=== PATIENT | male | born 1950 | race American Indian/Alaskan Native ===

== ENCOUNTER 2021-07-15 14:35 | Emergency (ER) | payer MEDICARE ==
--- NOTE | 2021-07-15 16:19 | Emergency Department Report ---
ED Back Pain/Injury HPI - General Chief Complaint: Back Pain/Injury Stated Complaint: SHARP PAIN LFT SIDE Source: patient Limitations: No Limitations - History of Present Illness Initial Comments: 70-year-old accompanied by presents to the ED complaining of back pain x 3 days. states that has been frequently going to the bathroom and she is concerned that he possibly has a urinary tract infection. states that has mild case of dementia. Patient is alert and oriented x3 at present time. He denies any back pain at present. Denies any IV steroids, fever ,or drug use. He denies any trauma. No obvious deformity noted. Patient is ambulatory. No acute distress noted. No Ill appearance noted. MD Complaint: back pain Onset/Timin -: Gradual Similar Symptoms Previously: No Place: home Radiation: none Severity scale (0 -10): 0 Improves With: none Worsens With: none Associated Symptoms: denies other symptoms - Related Data Previous Rx's Medication Instructions Recorded Last Taken Type cephALEXin [Keflex] 500 mg PO Q12HR 7 Days #14 cap 07/15/21 Unknown Rx Allergies Allergy/AdvReac Type Severity Reaction Status Date / Time No Known Allergies Allergy Unverified 07/15/21 14:56 ED Review of Systems ROS: Stated complaint: SHARP PAIN LFT SIDE Other details as noted in HPI Constitutional: denies: chills, fever Eyes: denies: eye pain, eye discharge, vision change ENT: denies: ear pain, throat pain Respiratory: denies: cough, shortness of breath, wheezing Cardiovascular: denies: chest pain, palpitations Endocrine: no symptoms reported Gastrointestinal: denies: abdominal pain, nausea, diarrhea Genitourinary: denies: urgency, dysuria Musculoskeletal: denies: back pain, joint swelling, arthralgia Skin: denies: rash, lesions Neurological: denies: headache, weakness, paresthesias Psychiatric: denies: anxiety, depression Hematological/Lymphatic: denies: easy bleeding, easy bruising ED Past Medical Hx - Medications Home Medications: Home Medications Medication Instructions Recorded Confirmed Last Taken Type cephALEXin [Keflex] 500 mg PO Q12HR 7 Days #14 cap 07/15/21 Unknown Rx ED Physical Exam - General Limitations: No Limitations General appearance: alert, in no apparent distress - Head Head exam: Present: atraumatic, normocephalic - Eye Eye exam: Present: normal appearance - ENT ENT exam: Present: mucous membranes moist - Neck Neck exam: Present: normal inspection - Respiratory Respiratory exam: Present: normal lung sounds bilaterally. Absent: respiratory distress - Cardiovascular Cardiovascular Exam: Present: regular rate, normal rhythm. Absent: systolic murmur, diastolic murmur, rubs, gallop - GI/Abdominal GI/Abdominal exam: Present: soft, normal bowel sounds - Rectal Rectal exam: Present: deferred - Extremities Exam Extremities exam: Present: normal inspection - Back Exam Back exam: Present: normal inspection - Neurological Exam Neurological exam: Present: alert, oriented X3 - Psychiatric Psychiatric exam: Present: normal affect, normal mood - Skin Skin exam: Present: warm, dry, intact, normal color. Absent: rash ED Course Vital Signs 07/15/21 14:56 Temperature 98.3 F Pulse Rate 90 Respiratory 18 Rate Blood Pressure 143/77 [Right] O2 Sat by Pulse 99 Oximetry ED Medical Decision Making - Medical Decision Making 70-year-old accompanied by presents to the ED complaining of back pain x 3 days. states that has been frequently going to the bathroom and she is concerned that he possibly has a urinary tract infection. states that has mild case of dementia. Patient is alert and oriented x3 at present time. He denies any back pain at present. Denies any IV steroids, fever ,or drug use. He denies any trauma. No obvious deformity noted. Patient is ambulatory. No acute distress noted. No Ill appearance noted. Physical examination is unremarkable. 2 view lumbar spine show degenerative changes throughout the spine. If there radiculopathy mri recommended. Patient declined lab work at present time. Patient will follow up with urology and orthopedic Rechecked the patient is resting quietly quietly and comfortable and feeling better. I discussed the results of diagnostic study, my clinical impression and the plan for further treatment with the patient. Patient agrees with plan and discharge at this present time. All question addressed. I have given the patient instruction regarding a diagnosis ,expectation ,follow- up and return precaution. I explained to the patient that emergent condition may arise and to return to the ED for new worsen and any new persisting condition. I have explained the importance of following up with the primary care physician or referral physician listed below has instructed. The patient verbalized understanding of discharge instruction. Critical care attestation.: If time is entered above; I have spent that time in minutes in the direct care of this critically ill patient, excluding procedure time. ED Disposition Clinical Impression: Back pain Qualifiers: Back pain location: low back pain Chronicity: unspecified Back pain laterality: bilateral Sciatica presence: without sciatica Qualified Code(s): M54.50 - Low back pain, unspecified Hematuria Qualifiers: Hematuria type: unspecified type Qualified Code(s): R31.9 - Hematuria, unspecified Disposition: 01 HOME / SELF CARE / HOMELESS Is pt being admited?: No Does the pt Need Aspirin: No Condition: Stable Instructions: Acute Back Pain, Adult, Back Injury Prevention, [id number], Hematuria, Adult Additional Instructions: Follow-up with urology Follow-up with orthopedic for MRI Follow-up with your primary care doctor in the [place] Prescriptions: cephALEXin [Keflex] 500 mg PO Q12HR 7 Days #14 cap Referrals: MELVIN MARTIN MD [Staff Physician] - 3-5 Days FAWAD LA MD [Staff Physician] - 3-5 Days Time of Disposition: 17:53
[2021-07-15 16:37] LABS: Bilirubin,Urine NEG (Negative); Blood,Urine SM (Negative); Color,Urine Straw (Yellow); Protein,Urine <15 mg/dL mg/dL (Negative); Urobilinogen,Urine < 2.0 mg/dL (<2.0); WBC,Urine < 1.0 /HPF (0.0-6.0)
--- NOTE | 2021-07-15 17:27 | XRay Report ---
Lumbar spine 2 views INDICATION: Back pain FINDINGS: Minimal anterior listhesis of L4-L5. Endplate changes with anterior posterior disc osteophy mayte and facet arthropathy throughout. Sacrum appears normal. IMPRESSION: Degenerative changes seen throughout spine. If there is radiculopathy MRI is recommended. Signer Name: Reinier Karimi MD Signed: 07/15/2021 5:23 PM Workstation Name: [id number]
[2021-07-15 18:27] VITALS: BP 142/78
== END 2021-07-15 18:14 | disposition home or self-care (01) ==
LOC: ED 14:35
DX: M54.50 Low back pain, unspecified (principal); R31.9 Hematuria, unspecified
CPT/HCPCS: 72100; 81001; 99283